=== PATIENT | female | born 1940 | race Hispanic/Latino ===

== ENCOUNTER 2023-01-01 18:59 | Inpatient (IN) | payer MEDICARE ==
[~2023-01-01] VITALS: Ht 149.9 cm; Wt 68.0 kg
[2023-01-01] MEDS ORDERED: ONDANSETRON HCL INJ 2MG/ML 2ML 2 MG/ML VIAL IV STA (19:39)
[2023-01-01] MEDS ORDERED: Morphine 4mg INJECTION 4 MG/ML INJ IV PRN (19:45)
[2023-01-01 21:02] LABS: BASOPHILS # (AUTO) 0.1 (0.0-0.1); EOSINOPHILS # (AUTO) 0.1 (0.0-0.4); EOSINOPHILS % 2.4 % (0.0-6.0); HEMATOCRIT 41.1 % (34.2-44.1); HEMOGLOBIN 13.7 g/dL (12.0-16.0); LYMPHOCYTES # (AUTO) 1.4 (1.0-3.2); LYMPHOCYTES % 28.5 % (18.0-39.1); MEAN CORPUSCULAR HGB CONC 33.3 g/dL (31-35); MEAN CORPUSCULAR VOLUME 86.9 fL (81-99); MONOCYTES # (AUTO) 0.6 (0.2-0.8); MONOCYTES % 11.7 % (4.4-11.3); NEUTROPHILS # (AUTO) 2.9 (2.1-6.9); NEUTROPHILS % 56.2 % (38.7-80.0); PLATELET COUNT 70 x10e3/uL (140-360); RED BLOOD COUNT 4.73 x10e6/uL (3.6-5.1); RED CELL DISTRIBUTION WIDTH 15.4 % (11.7-14.4)
[2023-01-01 21:15] LABS: ANION GAP 12.9 mmol/L (8-16); CALCIUM 9.5 mg/dL (8.4-10.2); CREATININE, SERUM 0.75 mg/dL (0.57-1.11); POTASSIUM 3.9 mmol/L (3.5-5.1)
[2023-01-01] MEDS ORDERED: SODIUM CHLORIDE FLUSH 10 ML SYR INJ PRN (21:30)
[2023-01-01] MEDS ORDERED: ACETAMINOPHEN 325 MG TAB PO PRN (22:00)
[2023-01-01] MEDS ORDERED: HYDRALAZINE HCL 20 MG/ML VIAL IV PRN (22:00)
[2023-01-01] MEDS ORDERED: POLYETHYLENE GLYCOL 3350 17 GM PACK PO PRN (22:00)
[2023-01-01] MEDS ORDERED: ONDANSETRON HCL INJ 2MG/ML 2ML 2 MG/ML VIAL IV PRN (22:00)
[2023-01-02] VITALS (10 sets, daily range): BP systolic 111–151; BP diastolic 58–75
[2023-01-02] MEDS ORDERED: AMLODIPINE BESYL5 MG PO (01:07)
[2023-01-02] MEDS ORDERED: ATORVASTATIN CA20 MG PO (01:07)
[2023-01-02] MEDS ORDERED: MEMANTINE HCL10 MG PO (01:07)
[2023-01-02] MEDS ORDERED: CARVEDILOL12.5 MG PO (01:07)
[2023-01-02] MEDS ORDERED: FLUOXETINE HCL40 MG PO (01:07)
[2023-01-02] MEDS ORDERED: DONEPEZIL HCL10 MG PO (01:07)
[2023-01-02] MEDS ORDERED: QUETIAPINE FUM100 MG PO (01:07)
[2023-01-02] MEDS ORDERED: QUETIAPINE FUMA25 MG PO (01:07)
[2023-01-02 05:36] LABS: BASOPHILS % 0.9 % (0.0-1.0); EOSINOPHILS # (AUTO) 0.2 (0.0-0.4); EOSINOPHILS % 3.8 % (0.0-6.0); HEMATOCRIT 38.5 % (34.2-44.1); HEMOGLOBIN 12.7 g/dL (12.0-16.0); LYMPHOCYTES # (AUTO) 1.5 (1.0-3.2); LYMPHOCYTES % 31.6 % (18.0-39.1); MEAN CORPUSCULAR HEMOGLOBIN 29.1 pg (28-32); MEAN CORPUSCULAR VOLUME 88.1 fL (81-99); MONOCYTES # (AUTO) 0.6 (0.2-0.8); MONOCYTES % 12.6 % (4.4-11.3); NEUTROPHILS # (AUTO) 2.4 (2.1-6.9); NEUTROPHILS % 50.9 % (38.7-80.0); PLATELET COUNT 63 x10e3/uL (140-360); RED BLOOD COUNT 4.37 x10e6/uL (3.6-5.1); RED CELL DISTRIBUTION WIDTH 15.2 % (11.7-14.4)
[2023-01-02 06:00] LABS: ALBUMIN 2.7 g/dL (3.5-5.0); ALBUMIN/GLOBULIN RATIO 0.8 (0.8-2.0); ANION GAP 9.7 mmol/L (8-16); CALCIUM 9.2 mg/dL (8.4-10.2); CHOL/HDL RATIO 2.5 (3.0-3.6); CREATININE, SERUM 0.83 mg/dL (0.57-1.11); MAGNESIUM 1.9 MG/DL (1.3-2.1); PHOSPHORUS 3.8 MG/DL (2.3-4.7); POTASSIUM 3.7 mmol/L (3.5-5.1)
[2023-01-02 06:26] LABS: THYROID STIMULATING HORMONE 2.13 uIU/mL (0.350-4.940)
[2023-01-02] MEDS: DOCUSATE SODIUM 100 MG CAP PO SCH ×2 (10:17→17:47)
[2023-01-02] MEDS: FAMOTIDINE 20 MG TAB PO SCH ×2 (10:17→17:45)
[2023-01-02] MEDS: MEMANTINE 10 MG TAB PO SCH (17:45)
[2023-01-02] MEDS: CARVEDILOL 12.5 MG TAB PO SCH (17:47)
[2023-01-02] MEDS ORDERED: ATORVASTATIN 20 MG TAB PO SCH (21:00)
[2023-01-02] MEDS ORDERED: DONEPEZIL HCL 5 MG TAB PO SCH (21:00)
[2023-01-02] MEDS ORDERED: QUETIAPINE FUMARATE 100 MG TAB PO SCH (21:00)
[2023-01-03 00:55] VITALS: BP 134/75
[2023-01-03 05:01] VITALS: BP 151/75
[2023-01-03 07:58] VITALS: BP 153/83
[2023-01-03 08:37] VITALS: BP 153/83
[2023-01-03] MEDS ORDERED: FLUOXETINE HCL 20 MG CAP PO SCH (09:00)
[2023-01-03] MEDS ORDERED: QUETIAPINE FUMARATE 25 MG TAB PO SCH (09:00)
[2023-01-03] MEDS ORDERED: AMLODIPINE BESYLATE 5 MG TAB PO SCH (09:00)
[2023-01-03] MEDS: CARVEDILOL 12.5 MG TAB PO SCH ×2 (09:08→17:02)
[2023-01-03] MEDS: MEMANTINE 10 MG TAB PO SCH ×2 (09:08→17:00)
[2023-01-03] MEDS: DOCUSATE SODIUM 100 MG CAP PO SCH ×2 (09:09→17:01)
[2023-01-03] MEDS: FAMOTIDINE 20 MG TAB PO SCH ×2 (09:09→17:00)
[2023-01-03] MEDS ORDERED: ONDANSETRON HCL 4 MG ORAL DISINTEGRATING TAB PO PRN (11:00)
[2023-01-03 12:01] VITALS: BP 133/61
[2023-01-03 15:22] VITALS: BP 141/81
== END 2023-01-03 17:53 | disposition home or self-care (01) | DRG 536 ==
LOC: ER 19:06 → ERHOLD 21:21 → MED/SURG2 23:01 → OBSVTOIN 01-03 13:35
PROVIDERS: ADMIT Internal Medicine Critical Care Medicine; ATTEND Internal Medicine Critical Care Medicine
DX: S32.591A Other specified fracture of right pubis, initial encounter for closed fracture (principal); S32.601A Unspecified fracture of right ischium, initial encounter for closed fracture; W19.XXXA Unspecified fall, initial encounter; I10 Essential (primary) hypertension; G30.9 Alzheimer's disease, unspecified; F02.80 Dementia in other diseases classified elsewhere, unspecified severity, without behavioral disturbance, psychotic disturbance, mood disturbance, and anxiety; I20.9 Angina pectoris, unspecified; D69.6 Thrombocytopenia, unspecified; Z20.822 Contact with and (suspected) exposure to COVID-19; Z95.810 Presence of automatic (implantable) cardiac defibrillator
CPT/HCPCS: 36415; 72192; 73521; 80048; 80053; 80061; 83036; 83735; 84100; 84443; 85025; 94799; 99284; G0378; J2270; J2405

== ENCOUNTER 2023-02-17 11:10 | Emergency (ER) | payer MEDICARE ==
[~2023-02-17] VITALS: Ht 149.9 cm; Wt 68.0 kg
[~2023-02-17 11:10] MED LIST: AMLODIPINE BESYL5 MG PO; ATORVASTATIN CA20 MG PO; CARVEDILOL12.5 MG PO; DONEPEZIL HCL10 MG PO; FLUOXETINE HCL40 MG PO; MEMANTINE HCL10 MG PO; QUETIAPINE FUM100 MG PO; QUETIAPINE FUMA25 MG PO
[2023-02-17] MEDS ORDERED: ACETAMINOPHEN 325 MG TAB PO ONE (11:45)
[2023-02-17 11:56] LABS: BASOPHILS % 0.4 % (0.0-1.0); EOSINOPHILS # (AUTO) 0.1 (0.0-0.4); EOSINOPHILS % 2.3 % (0.0-6.0); HEMOGLOBIN 14.3 g/dL (12.0-16.0); LYMPHOCYTES # (AUTO) 1.6 (1.0-3.2); LYMPHOCYTES % 31.2 % (18.0-39.1); MEAN CORPUSCULAR HGB CONC 34.9 g/dL (31-35); MEAN CORPUSCULAR VOLUME 86.1 fL (81-99); MONOCYTES # (AUTO) 0.4 (0.2-0.8); MONOCYTES % 7.3 % (4.4-11.3); NEUTROPHILS # (AUTO) 3.1 (2.1-6.9); NEUTROPHILS % 58.4 % (38.7-80.0); PLATELET COUNT 90 x10e3/uL (140-360); RED BLOOD COUNT 4.76 x10e6/uL (3.6-5.1); RED CELL DISTRIBUTION WIDTH 15.7 % (11.7-14.4)
[2023-02-17 12:24] LABS: ANION GAP 13.1 mmol/L (8-16); CALCIUM 9.1 mg/dL (8.4-10.2); CREATININE, SERUM 0.74 mg/dL (0.57-1.11); POTASSIUM 4.1 mmol/L (3.5-5.1)
[2023-02-17 16:42] VITALS: BP 133/76
== END 2023-02-17 16:40 | disposition home or self-care (01) ==
LOC: ER 11:18
DX: S00.83XA Contusion of other part of head, initial encounter (principal); S32.499A Other specified fracture of unspecified acetabulum, initial encounter for closed fracture; W18.39XA Other fall on same level, initial encounter; Y93.01 Activity, walking, marching and hiking; Y92.89 Other specified places as the place of occurrence of the external cause; Z20.822 Contact with and (suspected) exposure to COVID-19; I10 Essential (primary) hypertension; G30.9 Alzheimer's disease, unspecified; F02.80 Dementia in other diseases classified elsewhere, unspecified severity, without behavioral disturbance, psychotic disturbance, mood disturbance, and anxiety; Z95.810 Presence of automatic (implantable) cardiac defibrillator
CPT/HCPCS: 36415; 70450; 72125; 72170; 72192; 80048; 85025; 93005; 99284; U0002

== ENCOUNTER 2024-05-10 20:07 | Emergency (ER) | payer MEDICARE ==
[~2024-05-10] VITALS: Ht 142.2 cm; Wt 68.9 kg
[~2024-05-10 20:07] MED LIST changes: +ASPIRIN EC81 MG PO; +DOXEPIN HCL10 MG PO; +K DUR10 MEQ PO; +REXULTI1 MG PO
[2024-05-10 21:15] VITALS: TEMP 99
[2024-05-10 22:20] LABS: INFLUENZAE A&B ANTIGEN (RAPID) NEGATIVE (NEGATIVE); RESPIRATORY SYNC. VIRUS NEGATIVE (NEGATIVE)
[2024-05-10 22:20] LABS: BASOPHILS % 0.3 % (0.0-1.0); EOSINOPHILS % 0.7 % (0.0-6.0); HEMATOCRIT 46.6 % (34.2-44.1); LYMPHOCYTES # (AUTO) 0.5 (1.0-3.2); LYMPHOCYTES % 8.4 % (18.0-39.1); MEAN CORPUSCULAR HEMOGLOBIN 29.5 pg (28-32); MEAN CORPUSCULAR HGB CONC 34.3 g/dL (31-35); MONOCYTES # (AUTO) 0.5 (0.2-0.8); MONOCYTES % 8.8 % (4.4-11.3); NEUTROPHILS # (AUTO) 4.8 (2.1-6.9); NEUTROPHILS % 81.3 % (38.7-80.0); RED BLOOD COUNT 5.42 x10e6/uL (3.6-5.1); RED CELL DISTRIBUTION WIDTH 16.1 % (11.7-14.4); WHITE BLOOD COUNT 5.93 x10e3/uL (4.8-10.8)
[2024-05-10 22:21] LABS: PLATELET COUNT 74 x10e3/uL (140-360)
[2024-05-10 22:33] LABS: ALBUMIN 3.8 g/dL (3.5-5.0); ALBUMIN/GLOBULIN RATIO 0.9 (0.8-2.0); ANION GAP 15.9 mmol/L (8-16); BILIRUBIN,TOTAL 2.6 mg/dL (0.2-1.2); CALCIUM 9.9 mg/dL (8.4-10.2); CREATININE, SERUM 0.77 mg/dL (0.57-1.11); POTASSIUM 3.9 mmol/L (3.5-5.1); TOTAL PROTEIN 8.1 g/dL (6.5-8.1)
[2024-05-10 22:56] LABS: CLARITY,URINE CLOUDY (CLEAR); COLOR,URINE YELLOW (YELLOW); GLUCOSE, URINE NEGATIVE (NEGATIVE); KETONES,URINE NEGATIVE (NEGATIVE); LEUKOCYTE ESTERASE ,URINE TRACE (NEGATIVE); NITRITE,URINE NEGATIVE (NEGATIVE); PH,URINE 7 (5 - 7); PROTEIN,URINE DIPSTICK NEGATIVE (NEGATIVE)
[2024-05-10 22:57] LABS: BILIRUBIN,URINE NEGATIVE (NEGATIVE); URINE UROBILINOGEN 2 mg/dL (0.2 - 1)
[2024-05-10 23:00] LABS: WBC,URINE (MAN) 21-50 /HPF (0-5)
[2024-05-10 23:01] LABS: AMORPHOUS SEDIMENT,URINE MANY (FEW); BACTERIA,URINE MANY /HPF; EPITHELIAL CELLS,URINE MANY /LPF; RENAL EPITHELIAL CELLS,URINE MODERATE; TRANSITIONAL EPI CELLS,URINE MANY
[2024-05-10 23:04] LABS: RBC,URINE 21-50 /HPF (0-5)
[2024-05-11] MEDS ORDERED: CEFDINIR300 MG PO (00:26)
[2024-05-11] MEDS ORDERED: PAXLOVID 150-11 EAC1 PO (00:26)
[2024-05-11 00:30] VITALS: PULSE 64; RESP 22
[2024-05-11 01:21] VITALS: BP 143/61; O2SAT 98
== END 2024-05-11 01:24 | disposition home or self-care (01) ==
LOC: ER 21:29
DX: R50.9 Fever, unspecified (principal); R53.1 Weakness; U07.1 COVID-19; N39.0 Urinary tract infection, site not specified; I10 Essential (primary) hypertension; G30.9 Alzheimer's disease, unspecified; F02.80 Dementia in other diseases classified elsewhere, unspecified severity, without behavioral disturbance, psychotic disturbance, mood disturbance, and anxiety; Z95.810 Presence of automatic (implantable) cardiac defibrillator
CPT/HCPCS: 36415; 70450; 71045; 80053; 81001; 84484; 85025; 87400; 87420; 93005; 99284; J0696; U0002